=== PATIENT | male | born 1995 | race Hispanic/Latino ===

== ENCOUNTER 2022-03-02 15:14 | Emergency (ER) | payer OTHER, SELFPAY ==
[2022-03-02] MEDS ORDERED: Ketorolac Tromethamine 30 MG/ML VIAL ONE (17:38)
[2022-03-02] MEDS ORDERED: Acetaminophen 500 MG TAB ONE (17:39)
== END 2022-03-02 18:47 | disposition home or self-care (01) ==
LOC: CSHERS 15:14
DX: S39.012A Strain of muscle, fascia and tendon of lower back, initial encounter (principal); M47.816 Spondylosis without myelopathy or radiculopathy, lumbar region; W19.XXXA Unspecified fall, initial encounter
CPT/HCPCS: 72131; 96372; J1885